=== PATIENT | male | born 1975 | race Caucasian/White ===

== ENCOUNTER 2018-09-29 16:03 | Inpatient (IN) | payer OTHER ==
[2018-09-29 18:23] VITALS: BMI 17.9
--- NOTE | 2018-09-29 21:38 | HP ---
COWS - Scale Resting Pulse: 1= [place] 81-100 Sweatin= Chills/Flushing Restless Observation: 3= Extraneous Movement Pupil Size: 1= Pupils >than Normal Bone or Joint Aches: 2= Severe Diffuse Aches Runny Nose/ Eye Tearin= Nasal Congestion GI Upset > 30mins: 3= Vomiting/Diarrhea Tremor Observation: 1= Tremor [place], Not Seen Yawning Observation: 1= 1-2x During Session Anxiety or Irritability: 1=Feels Anxious/Irritable Goose Flesh Skin: 0=Smooth Skin COWS Score: 15 CIWA Score - Admission Criteria OASAS Guidelines: Admission for Medically Managed Detox: Requires at least one of the followin. CIWA greater than 12 2. Seizures within the past 24 hours 3. Delirium tremens within the past 24 hours 4. Hallucinations within the past 24 hours 5. Acute intervention needed for co occurring medical disorder 6. Acute intervention needed for co occurring psychiatric disorder 7. Severe withdrawal that cannot be handled at a lower level of care (continued vomiting, continued diarrhea, abnormal vital signs) requiring intravenous medication and/or fluids 8. Admission ROS [facility] Chief Complaint: heroin detox 43 yo with no medical problems. Pt states first started using pain pills 8 years ago and stopped after 3 years. Pt was without using opioids for 5 years and then relapsed about 3 months ago with pain pills and switched to heroin about a month ago. Wants to stop using. Heroin- 5 bags/day, sniffing THC- rarely no other drug or alcohol use Allergies/Adverse Reactions: Allergies Allergy/AdvReac Type Severity Reaction Status Date / Time No Known Allergies Allergy Verified 09/29/18 18:15 Exam Limitations: No Limitations - Ebola screening Have you traveled outside of the country in the last 21 days: No Have you had contact with anyone from an Ebola affected area: No Patient History - Patient Medical History Hx Anemia: No - Patient Surgical History Past Surgical History: No - PPD History Previous Implant?: Yes Documented Results: Negative w/o proof - Smoking Cessation Smoking history: Former smoker Have you smoked in the past 12 months: Yes Hx Chewing Tobacco Use: No Initiated information on smoking cessation: Yes 'Breaking Loose' booklet given: 09/29/18 - Substance & Tx. History Hx Alcohol Use: No Hx Substance Use: Yes Substance Use Type: Heroin Hx Substance Use Treatment: Yes - Substances abused Other Other (specify): PERCOCET Substance route: Oral Frequency: Daily Amount used: 5 (30) MG PILLS DAILY Age of first use: 43 Date of last use: 09/29/18 Heroin Substance route: Inhalation Frequency: Daily Amount used: 5 BAGS Age of first use: 43 Date of last use: 09/29/18 Family Disease History - Family Disease History Family History: Denies Admission Physical Exam S - Vital Signs Vital Signs: Vital Signs - 24 hr 09/29/18 18:08 Temperature 98.1 F Pulse Rate 90 Respiratory 20 Rate Blood Pressure 123/80 - Physical General Appearance: Yes: Within Normal Limits, Mild Distress HEENTM: Yes: Within Normal Limits, EOMI, Hearing grossly Normal, Normal Voice, JT, Pharynx Normal Respiratory: Yes: Within Normal Limits, Chest Non-Tender, Lungs Clear, Normal Breath Sounds Neck: Yes: Within Normal Limits, No masses,lesions,Nodules Abdominal: Yes: Within Normal Limits, Normal Bowel Sounds, Non Tender Genitourinary: Yes: Within Normal Limits Back: Yes: Within Normal Limits Musculoskeletal: Yes: Within Normal Limits Extremities: Yes: Within Normal Limits, Normal Capillary Refill Neurological: Yes: Within Normal Limits, solderer production line II-XII NML intact, Fully Oriented, Alert, Motor Strength 5/5 Integumentary: Yes: Within Normal Limits, Normal Color, Dry Lymphatic: Yes: Within Normal Limits - Diagnostic (1) Opioid use disorder Current Visit: Yes Status: Acute Breathalyzer - Breathalyzer Breathalyzer: 0 Urine Drug Screen - Test Device Lot number: [id number] Expiration date: 08/10/19 - Control Is test valid?: Yes - Results Drug screen NEGATIVE: No Urine drug screen results: THC-Marijuana, FEN-Fentanyl, MOP-Opiates, OXY- Oxycodone, BZO-Benzodiazepines Inpatient Rehab Admission - Rehab Decision to Admit Inpatient rehab admission?: No
[2018-09-29] MEDS ORDERED: MAGNESIUM CITRATE 300 ML BOTTLE PO PRN (21:44)
[2018-09-29] MEDS ORDERED: clonazePAM 0.5 MG TABLET PO PRN (21:44)
[2018-09-29] MEDS ORDERED: IBUPROFEN 400 MG TABLET (FP) PO PRN (21:44)
[2018-09-29] MEDS ORDERED: MENTHOL/PHENOL 1 EACH UD MM PRN (21:44)
[2018-09-29] MEDS ORDERED: cloNIDine HCL 0.1 MG TABLET PO PRN (21:44)
[2018-09-29] MEDS ORDERED: MAGNESIUM HYDROX 2400MG/30ML ORAL SUSPENSION 30 ML CUP PO PRN (21:44)
[2018-09-29] MEDS ORDERED: BISMUTH SUBSALICYLATE 524 MG/30 ML UD PO PRN (21:44)
[2018-09-29] MEDS ORDERED: ACETAMINOPHEN 325 MG TABLET (FP) PO PRN ×2 (21:44)
[2018-09-29] MEDS ORDERED: METHADONE HCL 10 MG TABLET (FOR DETOX USE ONLY) PO ONE ×2 (22:30→23:00)
[2018-09-29] MEDS: METHOCARBAMOL 500 MG TABLET PO PRN (22:53)
[2018-09-29] MEDS: hydrOXYzine PAMOATE 25 MG CAPSULE (FP) PO PRN (22:53)
[2018-09-29] MEDS: THIAMINE HCL 100 MG TABLET (FP) PO SCH (22:54)
[2018-09-29] MEDS: MELATONIN 5 MG TABLETS PO PRN (22:59)
[2018-09-30] MEDS: PRENATAL VITAMINS W/ FOLIC ACID TABLET (FP) PO SCH (09:59)
[2018-09-30] MEDS: NICOTINE 14 MG/24 HOURS TOPICAL PATCH TD SCH (09:59)
[2018-09-30] MEDS ORDERED: METHADONE HCL 10 MG TABLET (FOR DETOX USE ONLY) PO ONE (10:00)
[2018-09-30 10:12] LABS: ALBUMIN 3.9 g/dl (3.4-5.0); BILIRUBIN,TOTAL 0.9 mg/dL (0.2-1); CALCIUM 8.9 mg/dL (8.5-10.1); CREATININE 1.1 mg/dL (0.55-1.3); HEMATOCRIT 37.7 % (35.4-49); HEMOGLOBIN 12.5 GM/dL (11.7-16.9); MCH 29.9 pg (25.7-33.7); MCHC 33.2 g/dl (32.0-35.9); MEAN PLT VOLUME 7.9 fl (7.5-11.1); PLATELET COUNT 233 K/MM3 (134-434); POTASSIUM 3.6 mmol/L (3.5-5.1); RBC 4.18 M/mm3 (4.00-5.60); RDW 12.8 % (11.9-15.9); WHITE BLOOD COUNT 6.3 K/mm3 (4.0-10.0)
[2018-09-30] MEDS: diazePAM 5 MG TABLET PO PRN ×2 (12:42→18:20)
--- NOTE | 2018-09-30 12:52 | PN ---
BHS COWS - Scale Resting Pulse: 0= [place] 80 or Below Sweatin= Chills/Flushing Restless Observation: 0= Sits Still Pupil Size: 0= Normal to Room Light Bone or Joint Aches: 1= Mild Discomfort Runny Nose/ Eye Tearin= Nasal Congestion GI Upset > 30mins: 1= Stomach Cramp Tremor Observation of Outstretched Hands: 2= Slight Tremor Visible Yawning Observation: 1= 1-2x During Session Anxiety or Irritability: 2=Irritable/Anxious Goose Flesh Skin: 3=Piloerection COWS Score: 12 BHS Progress Note (SOAP) Subjective: body aches tremor preferring valium prn "works better for me" discontinue klonopin and clonidin begin valium prn patient had prn early today feeling better able to resting on bed Objective: 09/30/18 12:51 Vital Signs Temperature 97 F L 09/30/18 09:15 Pulse Rate 60 09/30/18 09:15 Respiratory Rate 18 09/30/18 09:15 Blood Pressure 101/59 L 09/30/18 09:15 O2 Sat by Pulse Oximetry (%) Laboratory Last Values WBC 6.3 K/mm3 (4.0-10.0) 09/30/18 07:00 RBC 4.18 M/mm3 (4.00-5.60) 09/30/18 07:00 Hgb 12.5 GM/dL (11.7-16.9) 09/30/18 07:00 Hct 37.7 % (35.4-49) 09/30/18 07:00 MCV 90.0 fl (80-96) 09/30/18 07:00 MCH 29.9 pg (25.7-33.7) 09/30/18 07:00 MCHC 33.2 g/dl (32.0-35.9) 09/30/18 07:00 RDW 12.8 % (11.9-15.9) 09/30/18 07:00 Plt Count 233 K/MM3 (134-434) 09/30/18 07:00 MPV 7.9 fl (7.5-11.1) 09/30/18 07:00 Sodium 138 mmol/L (136-145) 09/30/18 07:00 Potassium 3.6 mmol/L (3.5-5.1) 09/30/18 07:00 Chloride 103 mmol/L (98-107) 09/30/18 07:00 Carbon Dioxide 28 mmol/L (21-32) 09/30/18 07:00 Anion Gap 7 MMOL/L (8-16) L 09/30/18 07:00 BUN 8 mg/dL (7-18) 09/30/18 07:00 Creatinine 1.1 mg/dL (0.55-1.3) 09/30/18 07:00 Est GFR (CKD-EPI)AfAm 94.79 09/30/18 07:00 Est GFR (CKD-EPI)NonAf 81.78 09/30/18 07:00 Random Glucose 110 mg/dL (74-106) H 09/30/18 07:00 Calcium 8.9 mg/dL (8.5-10.1) 09/30/18 07:00 Total Bilirubin 0.9 mg/dL (0.2-1) 09/30/18 07:00 AST 35 U/L (15-37) 09/30/18 07:00 ALT 25 U/L (13-61) 09/30/18 07:00 Alkaline Phosphatase 47 U/L (45-117) 09/30/18 07:00 Total Protein 7.0 g/dl (6.4-8.2) 09/30/18 07:00 Albumin 3.9 g/dl (3.4-5.0) 09/30/18 07:00 RPR Titer Nonreactive (NONREACTIVE) 09/30/18 07:00 lab noted Assessment: 09/30/18 12:52 withdrawal sx Plan: continue detox
[2018-09-30] MEDS: MAG HYDROX/AL HYDROX/SIMETH 30 ML UNIT-DOSE CUP PO PRN (16:46)
[2018-09-30 18:38] LABS: URINE APPEARANCE CLEAR; URINE BILIRUBIN NEGATIVE (NEGATIVE); URINE COLOR YELLOW; URINE GLUCOSE (UA) NEGATIVE (NEGATIVE); URINE KETONE NEGATIVE (NEGATIVE); URINE LEUK ESTERASE NEGATIVE (NEGATIVE); URINE NITRITE NEGATIVE (NEGATIVE); URINE PROTEIN NEGATIVE (NEGATIVE); URINE UROBILINOGEN 0.2 mg/dL (0.2-1.0)
[2018-09-30] MEDS: THIAMINE HCL 100 MG TABLET (FP) PO SCH (21:33)
[2018-09-30] MEDS: MELATONIN 5 MG TABLETS PO PRN (21:35)
[2018-09-30] MEDS: hydrOXYzine PAMOATE 25 MG CAPSULE (FP) PO PRN (21:35)
[2018-10-01] MEDS: diazePAM 5 MG TABLET PO PRN ×4 (00:28→18:24)
[2018-10-01] MEDS: MAG HYDROX/AL HYDROX/SIMETH 30 ML UNIT-DOSE CUP PO PRN ×2 (06:14→15:49)
[2018-10-01] MEDS: ONDANSETRON *ODT* 4 MG TABLET SL PRN ×2 (09:32→20:43)
[2018-10-01] MEDS: PRENATAL VITAMINS W/ FOLIC ACID TABLET (FP) PO SCH (09:58)
[2018-10-01] MEDS ORDERED: METHADONE HCL 10 MG TABLET (FOR DETOX USE ONLY) PO ONE (10:00)
[2018-10-01] MEDS: NICOTINE 14 MG/24 HOURS TOPICAL PATCH TD SCH (10:35)
[2018-10-01] MEDS: METHOCARBAMOL 500 MG TABLET PO PRN ×2 (11:57→18:31)
--- NOTE | 2018-10-01 12:35 | PN ---
BHS COWS - Scale Resting Pulse: 0= [place] 80 or Below Sweatin= Chills/Flushing Restless Observation: 0= Sits Still Pupil Size: 0= Normal to Room Light Bone or Joint Aches: 2= Severe Diffuse Aches Runny Nose/ Eye Tearin= None GI Upset > 30mins: 1= Stomach Cramp Tremor Observation of Outstretched Hands: 2= Slight Tremor Visible Yawning Observation: 1= 1-2x During Session Anxiety or Irritability: 2=Irritable/Anxious Goose Flesh Skin: 3=Piloerection COWS Score: 12 BHS Progress Note (SOAP) Subjective: Tremors, Interrupted Sleep, Stomach Cramping, Constipation, Anxious, Vomiting. Objective: PATIENT A & O X 3, OBSERVED AMBULATING ON UNIT UNASSISTED. IN NO ACUTE DISTRESS. 10/01/18 12:32 Vital Signs Temperature 97 F L 10/01/18 09:35 Pulse Rate 63 10/01/18 09:35 Respiratory Rate 18 10/01/18 09:35 Blood Pressure 120/80 10/01/18 09:35 O2 Sat by Pulse Oximetry (%) Laboratory Tests 09/30/18 09/30/18 09/30/18 07:00 07:00 07:00 WBC 6.3 RBC 4.18 Hgb 12.5 Hct 37.7 MCV 90.0 MCH 29.9 MCHC 33.2 RDW 12.8 Plt Count 233 MPV 7.9 Sodium 138 Potassium 3.6 Chloride 103 Carbon Dioxide 28 Anion Gap 7 L BUN 8 Creatinine 1.1 Est GFR (CKD-EPI)AfAm 94.79 Est GFR (CKD-EPI)NonAf 81.78 Random Glucose 110 H Calcium 8.9 Total Bilirubin 0.9 AST 35 ALT 25 Alkaline Phosphatase 47 Total Protein 7.0 Albumin 3.9 Urine Color Urine Appearance Urine pH Ur Specific [place] Urine Protein Urine Glucose (UA) Urine Ketones Urine Blood Urine Nitrite Urine Bilirubin Urine Urobilinogen Ur Leukocyte Esterase RPR Titer Nonreactive 09/30/18 18:25 WBC RBC Hgb Hct MCV MCH MCHC RDW Plt Count MPV Sodium Potassium Chloride Carbon Dioxide Anion Gap BUN Creatinine Est GFR (CKD-EPI)AfAm Est GFR (CKD-EPI)NonAf Random Glucose Calcium Total Bilirubin AST ALT Alkaline Phosphatase Total Protein Albumin Urine Color Yellow Urine Appearance Clear Urine pH 7.0 Ur Specific [place] 1.006 L Urine Protein Negative Urine Glucose (UA) Negative Urine Ketones Negative Urine Blood Negative Urine Nitrite Negative Urine Bilirubin Negative Urine Urobilinogen 0.2 Ur Leukocyte Esterase Negative RPR Titer LABS NOTED. Assessment: 10/01/18 12:32 WITHDRAWAL SYMPTOMS. Plan: CONTINUE DETOX. INCREASE DAILY PO FLUID INTAKE. PRN MELATONIN PO FOR INSOMNIA. PRN ROBAXIN PO FOR BODY ACHES. MUSCLE SPASMS. PRN ZOFRAN SL FOR VOMITING. PRN MOM FOR CONSTIPATION.
[2018-10-01] MEDS: hydrOXYzine PAMOATE 25 MG CAPSULE (FP) PO PRN (22:32)
[2018-10-01] MEDS: THIAMINE HCL 100 MG TABLET (FP) PO SCH (22:32)
[2018-10-01] MEDS: MELATONIN 5 MG TABLETS PO PRN (22:32)
[2018-10-01] MEDS ORDERED: hydrOXYzine PAMOATE 25 MG CAPSULE (FP) PO ONE (22:46)
[2018-10-02] MEDS: diazePAM 5 MG TABLET PO PRN (02:07)
[2018-10-02] MEDS: METHOCARBAMOL 500 MG TABLET PO PRN (02:07)
[2018-10-02] MEDS: hydrOXYzine PAMOATE 25 MG CAPSULE (FP) PO PRN (04:43)
[2018-10-02 06:54] VITALS: BP 109/67; PULSE 50; TEMP 97.6
--- NOTE | 2018-10-02 07:43 | DS ---
[facility] Detox Discharge Summary Admission Date: 09/29/18 Discharge Date: 10/02/18 - History Present History: Opioid Dependence Additional Comments: CLIENT REQUESTING 1 DAY EARLY DC TO REPORT TO OUTPATIENT PROGRAM. HE PRESENTLY DENIES ANY WITHDRAWAL SX'.S VSS. DENIES SI/HI/AVH. - Physical Exam Results Vital Signs: Vital Signs Temperature 97.6 F 10/02/18 06:00 Pulse Rate 50 L 10/02/18 06:00 Respiratory Rate 16 10/02/18 06:00 Blood Pressure 109/67 10/02/18 06:00 O2 Sat by Pulse Oximetry (%) - Treatment Hospital Course: Detox Protocol Followed, Discharged Condition Good Patient has Accepted a Rehab Referral to: [facility] - Medication Discharge Medications: Ambulatory Orders Naloxone HCl [Narcan] 4 mg NS ONCE PRN #1 spray 10/02/18 - Diagnosis (1) Opioid use disorder Current Visit: Yes Status: Acute - AMA Did Patient Leave Against Medical Advice: No
[2018-10-02] MEDS ORDERED: METHADONE HCL 5 MG TABLET (FOR DETOX USE ONLY) PO ONE (07:50)
[2018-10-02] MEDS ORDERED: METHADONE HCL 10 MG TABLET (FOR DETOX USE ONLY) PO ONE (10:00)
[2018-10-03] MEDS ORDERED: METHADONE HCL 5 MG TABLET (FOR DETOX USE ONLY) PO ONE (06:00)
== END 2018-10-02 09:03 | disposition home or self-care (01) | DRG 773 ==
LOC: YASAS 16:03 → Y3N 22:18
PROVIDERS: ADMIT Surgery; ATTEND Surgery
PROC: HZ2ZZZZ Detoxification Services for Substance Abuse Treatment (ICD-10-PCS; principal; 2018-09-29)
DX: F11.23 Opioid dependence with withdrawal (principal)
CPT/HCPCS: 36415; 80053; 81003; 85027; 86593; Q0162